=== PATIENT | male | born 1980 | race Caucasian/White ===

== ENCOUNTER 2021-03-02 09:48 | Emergency (ER) | payer BC ==
[2021-03-02 10:36] LABS: HEMOGLOBIN 15.6 gm/dl (12.3-15.3); RED BLOOD COUNT 5.06 M/UL (4.00-5.10); WHITE BLOOD COUNT 6.5 K/UL (4.5-11.0)
[2021-03-02 10:58] LABS: BUN/CREATININE RATIO 23 (0-10)
[2021-03-02] MEDS ORDERED: ONDANSETRON ODT4 MG SL (13:00)
[2021-03-02] MEDS ORDERED: TORADOL 10 MG T10 MG PO (13:00)
[2021-03-02] MEDS ORDERED: OMEPRAZOLE20 M1 PO (13:00)
[2021-03-02] MEDS ORDERED: AUGMENTIN 875-1 EACH PO (13:00)
== END 2021-03-02 13:22 | disposition home or self-care (01) ==
LOC: ER1 09:48
PROVIDERS: Physician Assistant
DX: K81.0 Acute cholecystitis (principal); K76.0 Fatty (change of) liver, not elsewhere classified
CPT/HCPCS: 76705; 80053; 81001; 83690; 85025; 96374; 96375; 99284; J1885; J2405; J7030

== ENCOUNTER → 2021-12-19 | Outpatient (CLI) | payer BC ==
[~2021-12-19] MED LIST: AUGMENTIN 875-1 EACH PO; OMEPRAZOLE20 M1 PO; ONDANSETRON ODT4 MG SL; TORADOL 10 MG T10 MG PO
[2021-12-21 12:16] LABS: CHOLESTEROL, TOTAL 260 mg/dL (100-199); HDL SIZE 8.4 nm (>=9.2); HDL-C 48 mg/dL (>39); HDL-P (TOTAL) 32.1 umol/L (>=30.5); LARGE VLDL-P 6.7 nmol/L (<=2.7); LDL SIZE 20.8 nm (>20.5); LDL SIZE 20.8 nm (>=20.8); LDL-C 183 mg/dL (0-99); LDL-P 2708 nmol/L (<1000); LP-IR SCORE 84 (<=45); SMALL LDL-P 1568 nmol/L (<=527); TRIGLYCERIDES 159 mg/dL (0-149); VLDL SIZE 54.5 nm (<=46.6)
== END ==
LOC: LAB 15:35
PROVIDERS: Nurse Practitioner Family
DX: K76.0 Fatty (change of) liver, not elsewhere classified (principal)
CPT/HCPCS: 36415; 80061; 83704

== ENCOUNTER → 2022-05-10 | Outpatient (CLI) | payer BC | LOC: EXRD 13:55 | DX: M25.511 Pain in right shoulder (principal); M19.011 Primary osteoarthritis, right shoulder | CPT/HCPCS: 73030 ==